=== PATIENT | female | born 1980 | race Two or more races ===

== ENCOUNTER 2017-03-14 15:59 | Emergency (ER) | payer MEDICAID ==
[~2017-03-14] VITALS: Ht 157.5 cm; Wt 71.2 kg
[2017-03-14 16:19] VITALS: BP 132/102; PULSE 104; RESP 16; TEMP 97.8; O2SAT 99
--- NOTE | 2017-03-14 16:28 | NUR ---
PPatient to ER bed 7 to gown for evaluation. Side rails up. Report given to CIRILO Mckinney
--- NOTE | 2017-03-14 16:30 | NUR ---
Patient is stable. Patient states that she has nausea, headache, dizziness and abdominal cramping x 4 days. Patient states that she had a lithotripsy 2 months ago. Abdomen is round and soft. Pain 1/10. No other complaints/injuries per patient or as noted.
--- NOTE | 2017-03-14 16:34 | NUR ---
HERNANDEZ Padron at bedside examining patient.
[2017-03-14 16:45] LABS: BILIRUBIN,URINE NEGATIVE (NEGATIVE); BLOOD, URINE 1+ (NEGATIVE); CLARITY/URINE SL HAZY (CLEAR); COLOR,URINE YELLOW (YELLOW); GLUCOSE,URINE NEGATIVE (NEGATIVE); KETONES,URINE NEGATIVE (NEGATIVE); LEUKOCYTE ESTERASE ,URINE NEGATIVE (NEGATIVE); NITRITE, URINE NEGATIVE (NEGATIVE); PROTEIN URINE NEGATIVE (NEGATIVE); UROBILINOGEN,URINE 0.2 (0.2-1.0)
[2017-03-14] MEDS ORDERED: ONDANSETRON 4 MG ODT TAB PO ONE (16:45)
[2017-03-14] MEDS ORDERED: ACETAMINOPHEN 500 MG TABLET PO ONE (16:45)
--- NOTE | 2017-03-14 16:46 | NUR ---
Patient refused to take 8mg of Zofran. Patienttook 4 mg of Zofran orally. C[employer]ILDER Nereida notified.
[2017-03-14 17:00] LABS: BASOPHILS # (AUTO) 0.1 K/uL (0.0-0.2); EOSINOPHILS # (AUTO) 0.1 K/uL (0.0-0.4); EOSINOPHILS % (AUTO) 1.5 % (0.0-4.0); HEMATOCRIT 38.1 % (36-48); HEMOGLOBIN 12.8 g/dL (12.0-16.0); LYMPHOCYTES # (AUTO) 2.7 K/uL (1.0-5.5); LYMPHOCYTES % (AUTO) 34.3 % (20.5-51.5); MEAN CORPUSCULAR HEMOGLOBIN 28 pg (27-31); MEAN CORPUSCULAR HGB CONC 33 % (32-36); MEAN CORPUSCULAR VOLUME 84 fL (79.0-98.0); MONOCYTES # (AUTO) 0.6 K/uL (0.0-1.0); MONOCYTES % (AUTO) 7.6 % (1.7-9.3); NEUTROPHILS # (AUTO) 4.3 K/uL (1.8-7.7); NEUTROPHILS % (AUTO) 55.6 % (40.0-70.0); PLATELET COUNT (AUTO) 302 K/uL (130-430); RED BLOOD CELL COUNT(AUTO) 4.53 MIL/uL (4.2-6.2); RED CELL DISTRIBUTION WIDTH 13.5 % (9.0-15.0); WHITE BLOOD COUNT (AUTO) 7.8 K/uL (4.8-10.8)
[2017-03-14 17:09] LABS: BACTERIA,URINE MODERATE /HPF (None Seen); MUCUS,URINE 3+ /LPF (None Seen); WBC,URINE 0-3 /HPF (0-3)
[2017-03-14 17:14] LABS: CREATININE 0.96 mg/dL (0.55-1.30); POTASSIUM 3.5 mmol/L (3.5-5.1)
[2017-03-14 17:19] LABS: ALBUMIN 3.7 g/dL (3.4-4.8); TOTAL BILIRUBIN 0.3 mg/dL (0.0-1.0); TOTAL PROTEIN, SERUM 7.7 g/dL (6.4-8.3)
[2017-03-14] MEDS ORDERED: ONDANSETRON HCL 4 MG/2 ML VIAL IVP ONE (17:30)
[2017-03-14] MEDS ORDERED: NACL 0.9% 1,000 ML IV ONE (17:30)
[2017-03-14] MEDS ORDERED: KETOROLAC TROMETHAMINE 30 MG VIAL IVP ONE (17:30)
--- NOTE | 2017-03-14 17:30 | NUR ---
Patient refused toradol and zofran IVP. Addendum: 03/15/17 at 0353 by [email or web address] HUYEN obrien
[2017-03-14 18:29] VITALS: BP 132/102; PULSE 104; RESP 16; TEMP 97.8; O2SAT 99
--- NOTE | 2017-03-14 18:29 | NUR ---
Patient given written and verbal discharge instructions and verbalizes understanding. ER MD discussed with patient the results and treatment provided. Patient in stable condition. ID arm band removed. IV catheter removed intact and dressing applied, no active bleeding. Rx of Zofran, tylenol, given. Patient educated on pain management and to follow up with PMD in 2 days. Pain Scale 0/10 Opportunity for questions provided and answered.
== END 2017-03-14 18:29 | disposition home or self-care (01) ==
LOC: SED 15:59
DX: N23 Unspecified renal colic (principal); Z88.5 Allergy status to narcotic agent
CPT/HCPCS: 36415; 74176; 80053; 81000; 81025; 83605; 85025; 87040; 87086; 96360; 99285; J7030; Q0162

== ENCOUNTER 2018-10-23 16:50 | Emergency (ER) | payer SELFPAY ==
[~2018-10-23] VITALS: Ht 157.5 cm; Wt 74.8 kg
[2018-10-23 17:00] VITALS: BP_SYST 145
--- NOTE | 2018-10-23 17:00 | NUR ---
BROUGHT IN FROM WAITING ROOM DUE TO PT HAVING SEVERE PANIC ATTACK. PT HYPERVENTILATING PLACED IN HALLWAY BED AND TRIAGED. REPORT GIVEN TO FABY
[2018-10-23] MEDS ORDERED: LORazepam 2 MG/ML VIAL (FOR ER USE) IVP ONE ×2 (17:45→18:30)
[2018-10-23] MEDS ORDERED: NACL 0.9% 1,000 ML IV ONE (17:45)
--- NOTE | 2018-10-23 17:55 | NUR ---
# 18 gauge angiocath placed to Left AC. Use of asceptic technique. Opsite placed over site. Blood return noted. Blood for lab drawn from site. Flushed with 10 cc of normal saline. No evidence of infiltration noted. Patient tolerated well.
--- NOTE | 2018-10-23 18:00 | NUR ---
Pt was placed in bed 3 due to her severe panic attack. Pt is being monitored and vital signs are stable will continue to monitor.
[2018-10-23 18:02] LABS: BASOPHILS # (AUTO) 0.1 K/uL (0.0-0.2); BASOPHILS % (AUTO) 0.9 % (0.0-2.0); EOSINOPHILS # (AUTO) 0.1 K/uL (0.0-0.4); EOSINOPHILS % (AUTO) 0.6 % (0.0-4.0); HEMATOCRIT 40.3 % (36-48); HEMOGLOBIN 13.7 g/dL (12.0-16.0); LYMPHOCYTES # (AUTO) 4.2 K/uL (1.0-5.5); LYMPHOCYTES % (AUTO) 28.6 % (20.5-51.5); MEAN CORPUSCULAR HEMOGLOBIN 30 pg (27-31); MEAN CORPUSCULAR HGB CONC 34 % (32-36); MEAN CORPUSCULAR VOLUME 87 fL (79.0-98.0); MONOCYTES # (AUTO) 0.8 K/uL (0.0-1.0); MONOCYTES % (AUTO) 5.4 % (1.7-9.3); NEUTROPHILS # (AUTO) 9.5 K/uL (1.8-7.7); NEUTROPHILS % (AUTO) 64.5 % (40.0-70.0); PLATELET COUNT (AUTO) 364 K/uL (130-430); RED BLOOD CELL COUNT(AUTO) 4.61 MIL/uL (4.2-6.2); RED CELL DISTRIBUTION WIDTH 12.5 % (9.0-15.0); WHITE BLOOD COUNT (AUTO) 14.7 K/uL (4.8-10.8)
[2018-10-23 18:07] LABS: BILIRUBIN,URINE NEGATIVE (NEGATIVE); CLARITY/URINE CLEAR (CLEAR); COLOR,URINE YELLOW (YELLOW); GLUCOSE,URINE NEGATIVE (NEGATIVE); KETONES,URINE 3+ (NEGATIVE); LEUKOCYTE ESTERASE ,URINE NEGATIVE (NEGATIVE); NITRITE, URINE NEGATIVE (NEGATIVE); PROTEIN URINE NEGATIVE (NEGATIVE); UROBILINOGEN,URINE 0.2 (0.2-1.0)
[2018-10-23 18:09] LABS: BLOOD, URINE TRACE (NEGATIVE)
[2018-10-23 18:13] LABS: ANION GAP 20 (5-15); CALCIUM 9.8 mg/dL (8.4-11.0); CHLORIDE 99 mmol/L (98-107); CREATININE 1.05 mg/dL (0.55-1.30); GLUCOSE 129 mg/dL (70-99); SODIUM SERUM 135 mmol/L (136-145); UREA NITROGEN, BLOOD 16 mg/dL (8-21)
[2018-10-23 18:16] LABS: GFR AFRICAN AMERICAN 76 mL/min (>90)
--- NOTE | 2018-10-23 18:20 | NUR ---
Dr Kiser at bedside examining patient
[2018-10-23 18:23] LABS: BACTERIA,URINE FEW /HPF (None Seen); MUCUS,URINE 1+ /LPF (None Seen); RBC,URINE 0-3 /HPF (0-3)
--- NOTE | 2018-10-23 18:25 | NUR ---
Pt medicated with Ativan. Medication administration tolerated well no adverse effects noted at this time. Will continue to monitor
[2018-10-23] MEDS ORDERED: cefTRIAXone 1 GM in D5W 50 ML IV ONE (18:30)
[2018-10-23] MEDS ORDERED: POTASSIUM CHLORIDE 40 MEQ in NS 250 ML IV ONE (18:30)
[2018-10-23 18:32] LABS: ALANINE AMINOTRANSFERASE 19 U/L (12-78); ALBUMIN 3.8 g/dL (3.4-4.8); ASPARTATE AMINOTRANSFERASE 15 U/L (10-37); TOTAL BILIRUBIN 0.4 mg/dL (0.0-1.0)
[2018-10-23 18:34] LABS: BARBITURATE, URINE NEGATIVE (NEG <=200); BENZODIAZEPINE, URINE NEGATIVE (NEG <=150); CANNABINOID, URINE NEGATIVE (NEG <=50); COCAINE, URINE NEGATIVE (NEG <=150); METHAMPHETAMINES SCREEN,URINE NEGATIVE (NEG <=500); OPIATE, URINE NEGATIVE (NEG <=100); PHENCYCLIDINE SCREEN,URINE NEGATIVE (NEG <=25); UR TRICYCLIC ANTIDEPRESSANTS NEGATIVE (NEG <=300); URINE AMPHETAMINE NEGATIVE (NEG <=500); URINE METHADONE NEGATIVE (NEG <=200); URINE OXYCODONE SCREEN NEGATIVE (NEG <=100); URINE PROPOXYPHENE SCREEN NEGATIVE (NEG <=300)
[2018-10-23 18:36] LABS: HCG,QUANTITATIVE 1 mIU/ML (0-6); POTASSIUM 2.6 mmol/L (3.5-5.1)
[2018-10-23 18:37] LABS: ACETAMINOPHEN < 1 ug/mL (1-30); ALCOHOL, BLOOD < 3 mg/dL (<10)
--- NOTE | 2018-10-23 18:58 | NUR ---
Pt resting quietly in bed, boyfriend is at bedside.
--- NOTE | 2018-10-23 19:13 | NUR ---
Pt is resting quietly in bed, will continue to monitor. Report given to Krzysztof KERR.
--- NOTE | 2018-10-23 19:20 | NUR ---
#20 gauge angiocath placed to RAC. Use of asceptic technique. Opsite placed over site. Blood return noted. Flushed with 10 cc of normal saline. No evidence of infiltration noted. Patient tolerated well.
[2018-10-23] MEDS ORDERED: cefTRIAXone 1 GM VIAL ONE (19:38)
[2018-10-23] MEDS ORDERED: POTASSIUM CHLORIDE 20 MEQ TAB.PRT.SR PO ONE (19:45)
[2018-10-23] MEDS ORDERED: POTASSIUM CHLORIDE 20 MEQ in NS 250 ML IV ONE (19:45)
--- NOTE | 2018-10-23 20:00 | NUR ---
ED TAXICAB STARTER Padron at bedside reassessing patient.
--- NOTE | 2018-10-23 21:17 | NUR ---
Patient resting in bed quietly. Friend at bedside. Patient A/O x 4. Respirations even and unlabored. KCL infusing with no s/sx of infiltration. Will continue to monitor.
--- NOTE | 2018-10-23 22:00 | NUR ---
Patient reports mild relief of symptoms. Awaiting repeat BMP at this time. Family remains at bedside.
--- NOTE | 2018-10-23 22:25 | NUR ---
Patient given written and verbal discharge instructions and verbalizes understanding. ER MD discussed with patient the results and treatment provided. Patient in stable condition. ID arm band removed. IV catheter removed intact and dressing applied, no active bleeding. Rx of Macrobid given. Patient educated on pain management and to follow up with PMD. Pain Scale 0/10. Opportunity for questions provided and answered. Medication side effect fact sheet provided.
[2018-10-23 22:32] LABS: CALCIUM 8.2 mg/dL (8.4-11.0); CREATININE 0.71 mg/dL (0.55-1.30)
[2018-10-23 22:55] VITALS: BP_SYST 141
== END 2018-10-23 22:55 | disposition home or self-care (01) ==
LOC: SED 16:50
DX: N39.0 Urinary tract infection, site not specified (principal); F41.9 Anxiety disorder, unspecified; D72.829 Elevated white blood cell count, unspecified; E87.6 Hypokalemia; E87.3 Alkalosis; Z88.6 Allergy status to analgesic agent
CPT/HCPCS: 36415; 36600; 80048; 80053; 80307; 81000; 82803; 83605; 84702; 85025; 87040; 87086; 87186; 93005; 96361; 96365; 96368; 96375; 96376; 99284; G0480; G0481; G0482; J0696; J2060; J3480 ×2; J7030; J7050

== ENCOUNTER 2019-11-10 13:43 | Emergency (ER) | payer MEDICAID ==
[~2019-11-10] VITALS: Ht 157.5 cm; Wt 72.6 kg
[2019-11-10 14:09] VITALS: BP_SYST 135
--- NOTE | 2019-11-10 14:16 | NUR ---
Patient triaged and placed in waiting room. VSS and patient appears in no acute distress at this time. Accompanied by visitor, awaiting available bed, and MD notified of need for MSE.
[2019-11-10] MEDS ORDERED: NACL 0.9% 1,000 ML IV ONE (14:41)
--- NOTE | 2019-11-10 14:41 | NUR ---
Patient to ER bed 7 to gown for evaluation. Side rails up. Report given to CIRILO Arredondo.
--- NOTE | 2019-11-10 14:43 | NUR ---
Pt AAOx4 ambulated into ED c/o 8/10 L sided sharp flank pain radiating to back. +nausea. Pt states she had similar symptoms when she was diagnosed with kidney stones. Hx of lithotripsy. No other injuries/complaints per pt/noted. Will continue to monitor.
[2019-11-10] MEDS ORDERED: ONDANSETRON HCL 4 MG/2 ML VIAL IVP ONE (14:45)
[2019-11-10] MEDS ORDERED: KETOROLAC TROMETHAMINE 30 MG VIAL IVP ONE (14:45)
--- NOTE | 2019-11-10 14:50 | NUR ---
ER Dr. Ron at bedside examining patient.
--- NOTE | 2019-11-10 15:00 | NUR ---
Pt taken to radiology in stable condition
--- NOTE | 2019-11-10 15:08 | NUR ---
Pt returned from radiology in stable condition
[2019-11-10 15:15] LABS: BILIRUBIN,URINE NEGATIVE (NEGATIVE); BLOOD, URINE 2+ (NEGATIVE); CLARITY/URINE CLEAR (CLEAR); COLOR,URINE YELLOW (YELLOW); GLUCOSE,URINE NEGATIVE (NEGATIVE); KETONES,URINE NEGATIVE (NEGATIVE); NITRITE, URINE NEGATIVE (NEGATIVE); PROTEIN URINE NEGATIVE (NEGATIVE); UROBILINOGEN,URINE 0.2 (0.2-1.0)
[2019-11-10 15:22] LABS: LEUKOCYTE ESTERASE ,URINE TRACE (NEGATIVE)
[2019-11-10 15:23] LABS: BACTERIA,URINE FEW /HPF (None Seen); RBC,URINE 0-3 /HPF (0-3)
[2019-11-10 15:24] LABS: MUCUS,URINE None Seen /LPF (None Seen)
--- NOTE | 2019-11-10 15:42 | NUR ---
Pt refused Zofran and Toradol, but wishes to keep it "on board" for a later time in case she needs it.
[2019-11-10 15:51] LABS: BASOPHILS # (AUTO) 0.1 K/uL (0.0-0.2); BASOPHILS % (AUTO) 0.8 % (0.0-2.0); EOSINOPHILS # (AUTO) 0.1 K/uL (0.0-0.4); EOSINOPHILS % (AUTO) 0.8 % (0.0-4.0); HEMATOCRIT 42.5 % (36-48); HEMOGLOBIN 14.5 g/dL (12.0-16.0); LYMPHOCYTES # (AUTO) 2.1 K/uL (1.0-5.5); LYMPHOCYTES % (AUTO) 22.9 % (20.5-51.5); MEAN CORPUSCULAR HEMOGLOBIN 31 pg (27-31); MEAN CORPUSCULAR HGB CONC 34 % (32-36); MEAN CORPUSCULAR VOLUME 90 fL (79.0-98.0); MONOCYTES # (AUTO) 0.7 K/uL (0.0-1.0); MONOCYTES % (AUTO) 7.9 % (1.7-9.3); NEUTROPHILS # (AUTO) 6.2 K/uL (1.8-7.7); NEUTROPHILS % (AUTO) 67.6 % (40.0-70.0); PLATELET COUNT (AUTO) 324 K/uL (130-430); RED BLOOD CELL COUNT(AUTO) 4.75 MIL/uL (4.2-6.2); RED CELL DISTRIBUTION WIDTH 13.3 % (9.0-15.0); WHITE BLOOD COUNT (AUTO) 9.1 K/uL (4.8-10.8)
[2019-11-10 16:03] LABS: CALCIUM 9.3 mg/dL (8.4-11.0); CREATININE 0.78 mg/dL (0.55-1.30); POTASSIUM 3.2 mmol/L (3.5-5.1)
[2019-11-10 16:04] LABS: PROTHROMBIN TIME 9.7 SECS (9.5-12.5)
[2019-11-10 16:13] LABS: ALBUMIN 4.2 g/dL (3.4-4.8); TOTAL BILIRUBIN 0.4 mg/dL (0.0-1.0)
--- NOTE | 2019-11-10 16:47 | NUR ---
Patient given written and verbal discharge instructions and verbalizes understanding. ER MD Haas discussed with patient the results and treatment provided. Patient in stable condition. ID arm band removed. IV catheter removed intact and dressing applied, no active bleeding. Rx of Tramadol, Zofran given. Patient educated on pain management and to follow up with PMD. Pain Scale 0. Opportunity for questions provided and answered. Medication side effect fact sheet provided.
[2019-11-10 16:49] VITALS: BP_SYST 124
== END 2019-11-10 16:49 | disposition home or self-care (01) ==
LOC: SED 13:43
DX: N20.0 Calculus of kidney (principal); M54.32 Sciatica, left side; F41.9 Anxiety disorder, unspecified; Z88.5 Allergy status to narcotic agent; Z88.0 Allergy status to penicillin; Z88.1 Allergy status to other antibiotic agents; Z87.442 Personal history of urinary calculi
CPT/HCPCS: 36415; 71045; 74176; 80053; 81000; 82150; 83605; 83690; 85025; 85610; 85730; 87040; 99284; J1885; J2405; J7030

== ENCOUNTER 2019-12-04 21:25 | Emergency (ER) | payer MEDICAID ==
[~2019-12-04] VITALS: Ht 157.5 cm; Wt 77.1 kg
[2019-12-04 21:33] VITALS: BP_SYST 93
--- NOTE | 2019-12-04 21:53 | NUR ---
tPatient triaged and placed in waiting room. VSS and patient appears in no acute distress at this time. Accompanied by , awaiting available bed, and MD notified of need for MSE.
--- NOTE | 2019-12-04 22:54 | NUR ---
Patient left without being seen @ [id number]
== END 2019-12-04 22:54 | disposition left against medical advice (07) ==
LOC: SED 21:25
DX: F41.9 Anxiety disorder, unspecified (principal); Z53.21 Procedure and treatment not carried out due to patient leaving prior to being seen by health care provider